=== PATIENT | male | born 1985 | race African-American/Black ===

== ENCOUNTER 2017-12-01 06:33 | Inpatient (IN) | payer OTHER ==
[~2017-12-01] VITALS: Ht 188 cm; Wt 93.9 kg
[2017-12-01] VITALS (11 sets, daily range): BP systolic 102–132; BP diastolic 42–63
[~2017-12-01 06:33] MED LIST: Dexamethasone 20mg/5ml IVP ONE; NKM; ceFAZolin sod 1 GM in NS 55 ML IVPB ONE
[2017-12-01] MEDS ORDERED: HYDROmorphone 1mg/ml Carpuject SUBQ PRN (07:00)
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
[2017-12-01] MEDS ORDERED: LR 1000ml 1,000 ML IVLG SCH (09:06)
--- NOTE | 2017-12-01 09:07 | Anethesia Preoperative Eval ---
Anesthesia Pre-op PMH/ROS General Date of Evaluation: Dec 01, 2017 Time of Evaluation: 09:57 Anesthesiologist: Georges ASA Score: ASA 2 Mallampati Score Class I : Soft palate, uvula, fauces, pillars visible Class II: Soft palate, uvula, fauces visible Class III: Soft palate, base of uvula visible Class IV: Only hard plate visible Mallampati Classification: Class II Surgeon: Nikhil Diagnosis: Neck Pain Surgical Procedure: ACDF C5-6, C6-7 Anesthesia History: none Family History: no anesthesia problems Allergies: Coded Allergies: No Known Allergies (Unverified , 11/29/17) Medications: see eMAR Past Medical History Pulmonary: Reports: asthma PSxH Narrative: Knee Arthroscopy Anesthesia Pre-op Phys. Exam Physician Exam Last Vital Signs Date Time Temp Pulse Resp B/P (MAP) Pulse Ox O2 Delivery O2 Flow Rate FiO2 12/01/17 07:20 Room Air 12/01/17 07:13 97.9 58 18 132/53 (79) 100 97.9 Constitutional: NAD Neurologic: CN 2-12 intact Cardiovascular: RRR Respiratory: CTA Gastrointestinal: S/NT/ND Airway Exam Mallampati Score: Class II MO: full ROM: limited Teeth: intact Anesthesia Pre-op A/P Risk Assessment & Plan Assessment: ASA 2 Plan: GA, SED, GlideScope Go Status Change Before Surgery: No Pre-Antibiotics Dru Grams Ancef IV Given Within 1 Hr of Incision: Yes Time Given: 10:21 Adalberto Su MD Dec 01, 2017 09:07
[2017-12-01] MEDS ORDERED: Midazolam 2mg/2ml Inj IVP PRN (09:15)
[2017-12-01] MEDS ORDERED: Ketorolac 30mg Inj IV PRN ×2 (09:15)
[2017-12-01] MEDS ORDERED: Norco 5mg/325mg tab ORAL PRN (09:15)
[2017-12-01] MEDS ORDERED: oxyCODONE HCL/Acetaminophen 5/325mg ORAL PRN (09:15)
[2017-12-01] MEDS ORDERED: DiphenhydrAMINE 50mg/ml Inj IVP PRN (09:15)
[2017-12-01] MEDS ORDERED: HYDROcodone/Acetamin 7.5/325 tab ORAL PRN (09:15)
[2017-12-01] MEDS ORDERED: fentaNYL 100 mcg/2 mL IV PRN (09:15)
[2017-12-01] MEDS ORDERED: Meperidine 50mg/ml Inj(FOR RIGORS ONLY) IVP PRN (09:15)
[2017-12-01] MEDS ORDERED: Acetaminophen (Non formulary) 100 ML IV ONE (09:15)
[2017-12-01] MEDS ORDERED: Hydromorphone 0.5mg/0.5ml inj IVP PRN (09:15)
[2017-12-01] MEDS ORDERED: LORazepam Inj 2mg/ml 1ml IV PRN (09:15)
[2017-12-01] MEDS ORDERED: Atropine Sulfate 0.4mg/ml inj IVP PRN (09:15)
--- NOTE | 2017-12-01 09:28 | Pre-Procedure Note/Attestation ---
Pre-Procedure Note/Attestation Complete Prior to Procedure Procedure Narrative: ACDF C5-C6, C6-C7 anterior plate C5-6-7 Indications for Procedure Pre-Operative Diagnosis: Post traumatic Cervical neck pain, HNP, radiculopathy Attestation I attest that I discussed the nature of the procedure; its benefits; risks and complications; and alternatives (and the risks and benefits of such alternatives ), prior to the procedure, with the patient (or the patient's legal account retention representative). I attest that, if there was a reasonable possibility of needing a blood transfusion, the patient (or the patient's legal account retention representative) was given the [place] Department [employer] Services standardized written summary, pursuant to the Kaleb Raúl Blood Safety Act ([place] Health and Safety Code # 1645, as amended). I attest that I re-evaluated the patient just prior to the surgery and that there has been no change in the patient's H&P, except as documented below: TARAH PETERS Dec 01, 2017 09:28
[2017-12-01] MEDS ORDERED: Lidocaine 1% Plain 30 ml INJ ONE ×3 (09:31→11:57)
[2017-12-01] MEDS ORDERED: Zemuron 50mg/5ml Inj IV ONE (09:51)
[2017-12-01] MEDS ORDERED: Thrombin 5000 units TOPIC ONE (09:53)
[2017-12-01] MEDS ORDERED: Gelfoam Size TOPIC ONE (09:53)
[2017-12-01] MEDS ORDERED: Bacitracin 50000 Units Vial ONE (09:54)
[2017-12-01] MEDS ORDERED: Lidocaine 1% MPF 10mg/ml 5ml ONE (09:59)
[2017-12-01] MEDS ORDERED: Sodium Chloride 10ml vial INJ ONE (09:59)
[2017-12-01] MEDS ORDERED: LR 1000ml ONE (10:00)
[2017-12-01] MEDS ORDERED: NS Irrig 1000ml ONE (10:00)
[2017-12-01] MEDS ORDERED: Propofol 1,000mg/ 100ml btl IV ONE (10:00)
[2017-12-01] MEDS ORDERED: Sterile Water Irrig 1000ml IRRIG ONE (10:00)
[2017-12-01] MEDS ORDERED: Neostigmine 1mg/ml 10ml Inj ONE (10:00)
[2017-12-01] MEDS ORDERED: fentaNYL 100 mcg/2 mL IV ONE ×3 (10:03→13:02)
[2017-12-01] MEDS ORDERED: Labetalol 5mg/ml 20ml vial IV ONE (10:40)
[2017-12-01] MEDS ORDERED: Glycopyrrolate 0.2mg/ml 1ml Vial ONE (12:54)
--- NOTE | 2017-12-01 12:54 | Brief Operative Note ---
Immediate Post Operative Note Operative Note Pre-op Diagnosis: Post traumatic Cervical neck pain, HNP, radiculopathy Procedure: ACDF C5-6, C6-7 Anterior Internal plate fixation C5-6-7 Xray Magnification Disection SSEP Post-op Diagnosis: same as pre-op Findings: consistent w/pre-op dx studies Surgeon: Nikhil SALAZAR Leverman: Candi CASTILLO Anesthesiologist: Georges SALAZAR Anesthesia: general Specimen: yes Complications: none Condition: stable Fluids: anesthesia Estimated Blood Loss: minimal Drains: none Implant(s) used?: Yes TARAH PETERS Dec 01, 2017 12:54
--- NOTE | 2017-12-01 13:34 | Immediate Post-Op Evaluation ---
Immediate Post-Op Evalulation Immediate Post-Op Evalulation Procedure: ACDF C5-6, C6-7 Date of Evaluation: Dec 01, 2017 Time of Evaluation: 13:53 IV Fluids: 1000 LR Blood Products: 0 Estimated Blood Loss: 015 Urinary Output: 0 Blood Pressure Systolic: 105 Blood Pressure Diastolic: 53 Pulse Rate: 79 Respiratory Rate: 16 O2 Sat by Pulse Oximetry: 99 Temperature (Fahrenheit): 97.5 Pain Score (1-10): 2 Nausea: No Vomiting: No Complications 0 Patient Status: awake, reacts, patent, extubated, none Hydration Status: adequate Dru Grams Ancef IV Given Within 1 Hr of Incision: Yes Time Given: 10:21 Adalberto Su MD Dec 01, 2017 13:34
--- NOTE | 2017-12-01 15:33 | 48 Hour Post Anesthesia Eval ---
Post Anesthesia Evaluation Procedure: ACDF C5-6, C6-7 Date of Evaluation: Dec 01, 2017 Time of Evaluation: 15:31 Blood Pressure Systolic: 105 0: 56 Pulse Rate: 72 Respiratory Rate: 20 Temperature (Fahrenheit): 97.6 O2 Sat by Pulse Oximetry: 98 Airway: patent Nausea: No Vomiting: No Pain Intensity: 1 Hydration Status: adequate Cardiopulmonary Status: stable Mental Status/LOC: patient returned to baseline Follow-up Care/Observations: n/a Post-Anesthesia Complications: none Follow-up care needed: ready to discharge Eugenio Huddleston MD Dec 01, 2017 15:33
--- NOTE | 2017-12-01 15:57 | Diagnostic Imaging Report ---
INDICATION: Pain, intraoperative TECHNIQUE: Intraoperative imaging Fluoroscopy time: 16.4 seconds Total dose: 0.3925 mGym2 Total number of images: 4 COMPARISON: None FINDINGS: Intraoperative images demonstrate surgical tool projected at the level of C6-7 disc. Subsequent images demonstrate anterior fusion hardware and disc spacers bridging C5, C6, C7. IMPRESSION: Intraoperative imaging, as described
[2017-12-01] MEDS ORDERED: Morphine Sulfate 4mg/ml Inj (IV USE ONLY) IM PRN (17:00)
[2017-12-01] MEDS ORDERED: LORazepam 0.5mg tab ORAL PRN (17:00)
[2017-12-01] MEDS ORDERED: HYDROcodone/Acetamin 10/325 tab ORAL PRN (17:00)
[2017-12-01] MEDS ORDERED: Naloxone 0.4mg/ml Inj IVP PRN (17:00)
[2017-12-01] MEDS ORDERED: D5 1/2NS 1,000 ML IV SCH (17:00)
[2017-12-01] MEDS ORDERED: Chloraseptic Spray 20mL Bottle ORAL PRN (17:30)
[2017-12-01] MEDS ORDERED: NORCO 10-325 T1 EACH ORAL (17:48)
[2017-12-01] MEDS ORDERED: SOMA350 MG PO (17:49)
[2017-12-01] MEDS ORDERED: Docusate 100mg/10ml Liq NG SCH (18:00)
[2017-12-01] MEDS ORDERED: ceFAZolin sod 1 GM in D5W 55 ML IV SCH (18:00)
--- NOTE | 2017-12-01 18:30 | Operative Note - Dictated ---
DATE OF OPERATION: 12/01/2017 ADMITTING/PREOPERATIVE DIAGNOSIS: Posttraumatic cervical herniated nucleus pulposus with radiculopathy. POSTOPERATIVE DIAGNOSIS: Posttraumatic cervical herniated nucleus pulposus with radiculopathy. SURGEON: Kurt Tejeda, Ph.D., M.D. PR[employer]ED [employer] PANELS DEVELOPER: JONATHAN Beebe. ANESTHESIOLOGIST: Adalberto Su M.D. ANESTHESIA: General with intubation. ESTIMATED BLOOD LOSS: Minimal. COMPLICATIONS: None. POSTOP CONDITION: Good/stable. DETAILS OF PROCEDURE: 1. ACDF C5-C6, C6-C7 with right foraminotomies, interbody reconstruction, and fusion with titanium graft containing autograft/bio-4 osteo promoted material placement. 2. Anterior internal fixation bilateral C5, C6, C7 compressive. 3. Correction deformity. Intraoperative x-rays interpreted by surgeon. 4. High-powered magnification dissection. 5. SSEP monitoring. SPECIMEN: Disc fragments to pathology. DESCRIPTION OF PROCEDURE: The patient was brought to the operating room and in the supine position, general anesthesia with intubation was induced. IV antibiotics and intravenous Decadron were administered 30 minutes prior to incision time. Marker was taped to the right lateral aspect of the neck and a cross-table image was obtained demonstrating the correct level for incision placement. Level was marked on the left side of the neck. Right side marker removed. Right-side monitor did not penetrate the skin at any time during the procedure. Anterior cervical spine was sterilely prepped and draped free in usual sterile fashion. A transverse incision at the appropriate interval left lateral was placed sharply through dermis and epidermis. Electrocautery dissection was carried through the subcutaneous tissue to the level of the platysmas muscle, was identified, isolated, and transected in line with the incision. Blunt dissection was sequentially carried medial to the left sternocleidomastoid muscle through the cervical and pretracheal fascia to the midline between the right and left longus colli muscles. The disc space was identified. Spinal needle was bent at 90-degree angles so as to avoid penetration greater than 3 mm placed midline and a cross-table radiograph was obtained demonstrating level as correct at C5-C6. AP radiograph under sterile conditions demonstrated midline. Midline and position were marked. Needle was removed. Dissection was carried distally to the C6-C7 interval where a needle once again bent at 90 degree angles to avoid greater than 3 mm penetration into the disc was placed visually at midline and a cross-table and AP image was obtained demonstrating a correct level and midline. The midline was marked with [employer] [place] bur small drill holes into the anterior cortex midline of the C6 vertebral body. Needle was removed. Retractors placed. After subperiosteal elevation of the longus coli muscles over the appropriate intervals not exceeding 3 mm from the medial lateral extent. C6-C7: Annulotomy was performed following diskectomy to the posterior longitudinal ligament. Endplates with the [place] bur dissection denuded of cartilaginous end caps after they were additionally removed with curettage under high-power magnification. Annulotomy asymmetric right was performed with foraminotomy and decompression of nerve root. SSEP monitoring stable at all times. Interpositional graft to the appropriate dimensions was determined with determination in the AP and lateral planes at midline and correct level. The graft was packed with osteopromotive material and autograft, tamped into position, and maintaining midline position. Radiographs obtained in the AP and lateral planes under sterile conditions demonstrating correct alignment and placement. SSEP monitoring stable. Retractors were placed at the C5-C6 interval. Annulotomy was performed with diskectomy, curettage of endplates, followed with excision of the posterior longitudinal ligament asymmetric with right foraminotomy. SSEP monitoring stable at all times. Trial was placed and confirmed AP and lateral planes with radiographs under sterile conditions as midline. Position of the trial was marked on the adjacent anterior cortex of C5. The appropriate titanium graft containing osteopromotive material and autograft was tamped into position. AP and lateral radiographs obtained demonstrating excellent alignment. Traction on the neck was removed 10 pounds. Anterior plate with the appropriate dimensions was placed in a compressive mode with 17 mm screws cephalad caudad respectfully into the C5 and C7 vertebral bodies with bilateral 15 mm screws into the C6 vertebral body. AP and lateral radiographs were obtained demonstrating alignment and plate position. Wound was irrigated with antibiotic-containing saline. Exploration did not reveal any excoriation or laceration of vital structures. SSEP monitoring stable. After copious irrigation, sequential reapproximation of the platysmas muscle and subcuticular closure of dermis and epidermis, followed by transverse surgical strips and sterile bandage maintained in place with tape. The patient was awakened, extubated in the operating room, and transported to postop recovery in good stable condition. Kurt Tejeda M.D. DR: ROSA JOB#: [id number] CC:
[2017-12-01] MEDS ORDERED: Tubing IV Secondary IV ONE (18:34)
[2017-12-01] MEDS ORDERED: D5 1/2NS 1000ml IV ONE (18:34)
[2017-12-01] MEDS ORDERED: LORazepam 0.5mg tab ORAL SCH (21:00)
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
== END 2017-12-01 18:35 | disposition home or self-care (01) | DRG 473 ==
LOC: SUR 06:33 → 3E 15:55
PROC: 0RB30ZZ Excision of Cervical Vertebral Disc, Open Approach (ICD-10-PCS; principal; 2017-12-01 09:00)
PROC: 0RG20A0 Fusion of 2 or more Cervical Vertebral Joints with Interbody Fusion Device, Anterior Approach, Anterior Column, Open Approach (ICD-10-PCS; principal; 2017-12-01 09:00)
DX: M50.122 Cervical disc disorder at C5-C6 level with radiculopathy (principal); V89.2XXS Person injured in unspecified motor-vehicle accident, traffic, sequela; M25.50 Pain in unspecified joint
CPT/HCPCS: 36415; 72040; 76001; 86850; 86900; 86901; 94003; 94150; J2405; J2710